=== PATIENT | male | born 1970 | race Caucasian/White ===

== ENCOUNTER 2020-02-26 17:25 | Emergency (ER) | payer OTHER, SELFPAY ==
[2020-02-26 17:31] VITALS: BP 145/109; PULSE 90; RESP 18; TEMP 36.4; O2SAT 95; BMI 31.6
[2020-02-26 17:38] VITALS: RESP 18
--- NOTE | 2020-02-26 17:41 | W.ED.WOUNDLC ---
HPI - Wound/Laceration General: Chief Complaint: Wound/Laceration Stated Complaint: Left Thumb lac Time Seen by Provider: 02/26/20 17:41 History of Present Illness: HPI narrative: Patient is a 49-year-old male comes in the ED with a laceration on his left thumb. Injury occurred just prior to arrival. Patient says he was cutting a tree and then accidentally cut his thumb. He has had his tetanus shot within the last 5 years. 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 Patient said his main concern was to get put on antibiotics due to his MRSA history. Patient says he has had no real pain and does not need any pain medications here in the ED. Associated symptoms: Denies chills, fever(s), nausea or vomiting Review of Systems Const: Denies: fever(s), chills or fatigue Eyes: Denies: change in vision or eye discomfort ENMT: Denies: throat pain, odynophagia, nasal discharge or nasal congestion Card: Denies: chest pain, palpitations, edema, swelling of feet/ankles, dyspnea on exertion or orthopnea Resp: Denies: dyspnea, productive cough or non-productive cough GI: Denies: abdominal pain, nausea, vomiting, diarrhea, constipation or hematochezia : Denies: flank pain, difficulty urinating, dysuria or hematuria Musc: Denies: neck pain, back pain or extremity swelling Skin/Breast: Reports: new lesions (laceration to left thumb); Denies: rash Neuro: Denies: headache(s), numbness in extremities or weakness in extremities Physical Exam Const: COMMON NORMALS: no acute distress, patient oriented x3, healthy appearing and alert GENERAL APPEARANCE: cooperative and comfortable HENMT: COMMON NORMALS: normocephalic HEAD & SCALP: normocephalic MOUTH: Normal oral and palatal mucosa present THROAT: posterior oropharynx normal and uvula midline Neck/C-Spine: COMMON NORMALS: supple GENERAL: Yes normal visual inspection Resp: COMMON NORMALS: normal respiratory effort, No retractions, No use of accessory muscles and clear to auscultation bilaterally AUSCULTATION: clear to auscultation bilaterally Cardio: COMMON NORMALS: regular rate, regular rhythm, S1 normal heart sound present, S2 normal heart sound present, No gallops present (Cardio), No clicks present (Cardio), No murmurs present (Cardio) and Peripheral pulses 2+ throughout RATE: regular rate RHYTHM: regular rhythm HEART SOUNDS: S1 normal heart sound present and S2 normal heart sound present PERIPHERAL PULSES: Peripheral pulses 2+ throughout GI: COMMON NORMALS: Normal to inspection, nondistended, normoactive bowel sounds present, Soft to palpation, non-tender and no masses PALPATION: Yes Soft to palpation : COMMON NORMALS: Yes no CVA tenderness BLADDER/KIDNEY EXAM: Yes no CVA tenderness Back/Pelvis: COMMON NORMALS: no CVA tenderness Extremity: NARRATIVE EXTREMITY EXAM: Left hand?dorsal side of thumb has superficial linear laceration that is approximately half a centimeter in length. It is not actively bleeding. Cap refill to thumb is normal. Full range of motion and sensation intact. GENERAL: Yes normal exam except as noted Neuro: COMMON NORMALS: patient oriented x3 and moves all extremities SENSORIUM/ORIENTATION: Yes alert Skin: NARRATIVE SKIN EXAM: Left hand?dorsal side of thumb has superficial linear laceration that is approximately half a centimeter in length. It is not actively bleeding. No warmth, purulent drainage seen. GENERAL SKIN EXAM: dry skin Procedures Laceration Laceration 1: Site: hand (thumb) Side (If applicable): left Size (cm): 0.5 Description: linear and clean Depth: simple, single layer Pre-repair: irrigated extensively (With normal saline and cleaned with alcohol swab.) Skin layer closed with: other (dermabond) Technique: other (Dermabond) Course Vital Signs: Vital signs: Vital Signs Temperature 97.6 F 02/26/20 17:31 Pulse Rate 90 02/26/20 17:31 Respiratory Rate 18 02/26/20 18:51 Blood Pressure 145/109 02/26/20 17:31 Pulse Oximetry 95 02/26/20 17:31 MDM - Wound/Laceration MDM Narrative: Medical decision making narrative: Patient is a 49-year-old male comes to the ED with a laceration on left thumb. Patient is up-to-date on his tetanus but does have a history of MRSA. Exam-patient in no acute distress or pain. superficial half a centimeter laceration that is not actively bleeding. X-ray of left hand showed no acute fractures or foreign body seen. Thumb was irrigated extensively with normal saline and cleaned with alcohol swab. I then placed some Dermabond over small laceration help close it up. Nurse then put bacitracin on it and wrapped it with a bandage. Patient was given a dose of clindamycin and sent home with a prescription for clindamycin as prophylactic treatment for infection. Follow-up with PCP in 7 to 10 days. Return to ED precautions given. Patient understood and agreed with plan. Imaging Data^: Xray Ortho: Attestation: I personally reviewed and interpreted this imaging study as follows: Radiologist's impression: [address] [address] XRay Report Signed Patient: Jakob Jang Unit #: [id number] : 1970 Age/Sex: 49 / M ADM Date: 02/26/20 Loc: ER Room/Bed: Attending Dr: Ordering Provider/Ordering MD: Jose Armando Chavez Date of Service: 02/26/20 Procedure(s): XR hand LT min 3V* [id number] Accession Number(s): [id number] Report Number: [id number] PROCEDURE INFORMATION: Exam: XR Left Hand Exam date and time: 02/26/2020 5:43 PM Age: 49 years old Clinical indication: Injury or trauma; Other: Laceration; Hand; Left; Injury date: Today; Additional info: Injury to thumb TECHNIQUE: Imaging protocol: XR Left hand. Views: 3 or more views. COMPARISON: No relevant prior studies available. FINDINGS: Bones/joints: No visible acute osseous abnormality, fracture, subluxation, or dislocation. Mild degenerative disease of the PIP joint 4th digit. Soft tissues: No visible radiopaque foreign body or soft tissue emphysema. XR/XR hand LT min 3V* [id number] IMPRESSION: Nonacute. Dictated By: Héctor Pepper Signed By: Héctor Pepper Signed Date/Time: 02/26/201823 DD/ 22 Discharge Plan Discharge Patient Disposition: Home Clinical Impression: Laceration Condition: Stable Prescriptions: New clindamycin HCl 150 mg capsule 150 mg PO QID 7 Days Qty: 28 RF: 0 Discharge Orders: Discharge Order (Routine); Ordered 02/26/20 Ordered By: Jose Armando Chavez Referrals: Tee Pruitt Jr, MD [Primary Care Provider] - Discharge Diet: Regular Discharge Activity: Limit activity as instructed Patient Instructions: Finger Laceration (ED) Activity Restrictions/Additional Instructions: Take full course of antibiotics as prescribed. Keep laceration site clean and dry for the next 24 hours. Then after that you can clean and re-bandage daily. Watch for signs of infection such as redness, warmth, increased tenderness and puslike drainage. If you see the signs of infection return to the ED, urgent care or PCP for reevaluation. call your PCP to schedule a follow-up appointment for reevaluation in 7-10 days. Continue taking all home meds. Follow discharge plans as discussed. You can return to the ED if symptoms worsen. Discharge Date/Time: 02/26/20 18:52 Coding Level of Care Code ED [employer] Supervisor for Selena Lopez Exam Comprehensive
[2020-02-26 18:51] VITALS: RESP 18
[2020-02-26] MEDS: clindamycin 150 mg Capsule 300 MG PO (18:51)
[2020-02-26] MEDS: bacitracin ointment Pkt 1 EACH TOPICAL (18:51)
== END 2020-02-26 18:52 | disposition home or self-care (01) ==
PROVIDERS: Emergency Provider Physician Assistant; PCP Family Medicine
DX: S61.012A Laceration without foreign body of left thumb without damage to nail, initial encounter (principal); W26.9XXA Contact with unspecified sharp object(s), initial encounter
CPT/HCPCS: 12001; 12345; 73130; 99281; 99283